=== PATIENT | female | born 1940 | race Two or more races ===

== ENCOUNTER 2017-08-07 09:38 | Outpatient (CLI) | payer OTHER | END 2017-08-07 15:00 | disposition home or self-care (01) | LOC: RAD 09:38 | DX: M12.872 Other specific arthropathies, not elsewhere classified, left ankle and foot (principal); M19.072 Primary osteoarthritis, left ankle and foot ==

== ENCOUNTER 2024-09-12 09:12 | Outpatient (CLI) | payer OTHER | END 2024-09-12 09:19 | disposition home or self-care (01) | LOC: LAB 09:12 | PROVIDERS: ATTEND Specialist | DX: E11.21 Type 2 diabetes mellitus with diabetic nephropathy (principal); E11.65 Type 2 diabetes mellitus with hyperglycemia ==

== ENCOUNTER 2024-09-12 09:53 | Outpatient (CLI) | payer OTHER | END 2024-09-12 09:59 | disposition home or self-care (01) | LOC: RAD 09:53 | PROVIDERS: ATTEND Specialist | DX: J45.998 Other asthma (principal) ==